=== PATIENT | female | born 1955 | race Caucasian/White ===

== ENCOUNTER 2020-03-24 14:07 | Outpatient (CLI) | payer OTHER, SELFPAY ==
--- NOTE | 2020-03-24 14:13 | MM_ITS ---
WS: [id number] BILATERAL SCREENING DIGITAL MAMMOGRAM WITH CAD HISTORY: SCREENING COMPARISON: 12/13/2016 and 05/15/2014 Bilateral CC and MLO views submitted. Computer aided detection analyzed. Breast composition: There are scattered areas of fibroglandular density. No suspicious masses, microc alcifications or architectural distortion. MM/[place] [id number] IMPRESSION: BI-RADS: 1-Negative FOLLOW UP: 1 Year Follow-up
== END 2020-03-24 14:08 | disposition home or self-care (01) ==
LOC: RADSHAW 14:11
PROVIDERS: PCP Nurse Practitioner Family; Visit Provider Nurse Practitioner Family
DX: Z12.31 Encounter for screening mammogram for malignant neoplasm of breast (principal)
CPT/HCPCS: 77067

== ENCOUNTER → 2023-01-24 10:30 | Outpatient (BNVA) | payer MEDICARE, OTHER, SELFPAY | PROVIDERS: PCP Nurse Practitioner Family; Referring Provider Family Medicine; Visit Provider Obstetrics & Gynecology | DX: Z12.4 Encounter for screening for malignant neoplasm of cervix (principal) | CPT/HCPCS: 87624 ==

== ENCOUNTER → 2023-02-07 09:11 | Outpatient (BNVA) | payer MEDICARE, OTHER, SELFPAY | PROVIDERS: PCP Nurse Practitioner Family; Visit Provider Obstetrics & Gynecology | DX: N95.0 Postmenopausal bleeding (principal) | CPT/HCPCS: 76830 ==

== ENCOUNTER 2023-03-10 11:19 | Day surgery (SDC) | payer MEDICARE, OTHER, SELFPAY ==
[2023-03-09 08:54] VITALS: BMI 39.9
[2023-03-10] VITALS (7 sets, daily range): BP systolic 147–165; BP diastolic 70–91; PULSE 65–83; RESP 12–19; TEMP 36.1–36.6; O2SAT 99–100
--- NOTE | 2023-03-10 05:52 | W.PM.OPSFHP ---
Same Day Surgery H&P Indication for Procedure/HPI DATE OF PROCEDURE: March 10, 2023 CHIEF COMPLAINT/INDICATIONFOR SURGICAL PROCEDURE: postmenopausal bleeding PREOP DIAGNOSIS: Postmenopausal bleeding; Abnormal endometrium on ultrasound PLANNED PROCEDURE: Operation Date: 03/10/23 13:10 Proposed Procedures p Hysteroscopy, endometrial sampling, possible endometrial polypectomy with Myosure 46947,N95.0(Not Applicable) - Elliott Olvera MD 67 y.o. G0 LNMP?? 11 years ago Began to have vaginal bleeding several weeks ago ? Lasting days ? + clots from vagina Now scheduled for hysteroscopy, endometrial sampling, possible endometrial polypectomy Medications/Allergies* Home Medications Medication Instructions Recorded Confirmed Type No Known Home Medications 01/24/23 03/09/23 History Allergies/Adverse Reactions Allergy/AdvReac Type Severity Reaction Status Date / Time Penicillins Allergy unkown Verified 03/09/23 08:53 sulfamethoxazole Allergy ALGY-Hives Verified 03/09/23 08:54 [From ] trimethoprim [From ] Allergy ALGY-Hives Verified 03/09/23 08:54 Pertinent History/Comorbid Conditions* Family History (Updated 01/24/23 @ 09:15 by Natalia Sahu) Ovarian cancer Mother Diabetes Brother Denies family history of Colon cancer Heart disease Hyperlipidemia Breast cancer Hypertension Thyroid disease Stroke Pertinent Exam Findings alert, oriented x 3, clear to auscultation bilaterally and regular rate & rhythm Pertinent Data Pelvic sono? 02-07-23? endometrium thickened and cystic ? Normal ovaries Recommendations Surgery/Procedure today Coding Level of Care Code Acute Code for Chg Fwd Diagnoses Time Spent (min) 20
[2023-03-10] MEDS: sodium chloride 0.9% 1,000 ML 30 ML IV (12:07)
--- NOTE | 2023-03-10 12:09 | W.PM.OPSUD ---
Surgery/Procedure H&P Update DATE OF PROCEDURE: March 10, 2023 DATE H&P PERFORMED: 03/10/23 H&P UPDATE INFORMATION: I have reviewed H&P completed within last 30 days, I have examined patient prior to procedure and No changes to prior documentation PREOP DIAGNOSIS: Postmenopausal bleeding; Abnormal endometrium on ultrasound PLANNED PROCEDURE: Operation Date: 03/10/23 13:10 Proposed Procedures p Hysteroscopy, endometrial sampling, possible endometrial polypectomy with Myosure 57889,N95.0(Not Applicable) - Elliott Olvera MD
--- NOTE | 2023-03-10 13:50 | ANES.PREANE2 ---
Pre-Anesthetic Assessment Height/Weight: Height 1.65 m Weight 108.862 kg Temp Pulse Resp BP Pulse Ox O2 Del Method 97.8 F 73 18 148/85 99 Room Air 03/10/23 11:47 03/10/23 11:47 03/10/23 11:47 03/10/23 11:47 03/10/23 11:47 03/10/23 11:59 Preop Diagnosis: Postmenopausal bleeding; Abnormal endometrium on ultrasound Operation Date: 03/10/23 13:10 Proposed Procedures p Hysteroscopy, endometrial sampling, possible endometrial polypectomy with Myosure 10999,N95.0(Not Applicable) - Elliott Olvera MD Familial anesthetic complications: none Was Beta Janak taken within 24 hours: N/A Was Clonidine taken within 24 hours: N/A Last intake: Intake Last Liquid Date 03/10/23 Last Liquid Time 07:00 Last Solid Date 03/09/23 Last Solid Time 20:30 Social No alcohol and No tobacco Exam alert, oriented x 3, clear to auscultation bilaterally and regular rate & rhythm Airway Submandibular: within normal limits Cervical ROM: within normal limits Mallampati: Class II Dentition: chipped (multiple caries) History/ROS No significant history except as noted Anesthetic Plan ASA status: 1 Anesthesia: General Medications/Allergies Home Medications Medication Instructions Recorded Confirmed Last Taken Type No Known Home Medications 01/24/23 03/09/23 Unknown History Allergies Allergy/AdvReac Type Severity Reaction Status Date / Time Penicillins Allergy Intermediate ALGY-Hives Verified 03/10/23 11:40 sulfamethoxazole Allergy Intermediate ALGY-Hives Verified 03/10/23 11:40 [From ] trimethoprim [From ] Allergy Intermediate ALGY-Hives Verified 03/10/23 11:41 Current Medications Generic Name Dose Route Start Last Admin Trade Name Freq PRN Reason Stop Dose Admin Sodium Chloride 1,000 mls @ 30 mls/hr 03/10/23 11:45 03/10/23 12:07 Sodium Chloride 0.9% IV 03/11/23 11:44 30 mls/hr .Q24H RODDY Administration PFSH Anesthesia Family History Mother Ovarian cancer Brother Diabetes Denies family history of Colon cancer Heart disease Hyperlipidemia Breast cancer Hypertension Thyroid disease Stroke Data Anesthesia Cardiac Studies: No Data to Display
--- NOTE | 2023-03-10 15:23 | ANE.PACU2 ---
Inpatient post-anesthesia follow up: Airway intact: Yes Vital signs: Temperature 97.0 F Pulse Rate 80 Respiratory Rate 12 Blood Pressure 155/74 Pulse Oximetry 99 Oxygen Delivery Me thod Room Air Oxygen Flow Rate 6 Fraction of Inspir ed Oxygen Hydration adequate: Yes Nausea and vomiting: No Pain level: 2 Mental status: Baseline
[2023-03-10] MEDS: ondansetron 2 mg/ML SDV 2 mL 4 MG IVP (16:01)
--- NOTE | 2023-03-10 16:05 | PM.OP ---
Operative Report Date of procedure: March 10, 2023 Pre-op diagnosis: postmenopausal bleeding Post-op diagnosis: same Post-op findings: stenotic cervical os tortuous cervical canal Unable to introduce hysteroscope Procedure done: Curettage of uterus Implants: none Specimens removed/disposition: endometrial tissue Surgeon: Elliott Olvera MD Anesthesia: General Estimated blood loss (mL): 0 Complications: none Condition: stable Disposition: PACU Brief History: 67 y.o. G0 LNMP?? 11 years ago Began to have vaginal bleeding several weeks ago ? Lasting days ? + clots from vagina scheduled for hysteroscopy, endometrial sampling, possible endometrial polypectomy Procedure: Informed consent signed. Patient was taken to the operating room.? Anesthesia was induced.? Patient was placed in dorsolithotomy position, prepped and draped for hysteroscopy.? A bivalve speculum was placed in the vagina.? The anterior lip of the cervix was grasped with a sharp-toothed tenaculum.? The cervical os was noted to be extremely stenotic.? Pediatric dilators were used to dilate the os enough to introduce a small curette.? The cervical canal was tortuous, was unable to allow introduction of a hysteroscope. ??Endometrial curettage was done with a sharp curette.? ?Small amount of endometrial tissue was obtained and sent to pathology.?? The sharp-toothed tenaculum was removed.? There was no bleeding from the endometrial cavity or cervix.? The patient was then placed supine and awakened and taken to the PACU. Postop condition:? stable EBL:? none Sponge and instruments counts were normal x 2 Complications:? none
== END 2023-03-10 16:15 | disposition home or self-care (01) ==
PROVIDERS: PCP Family Medicine; Visit Provider Obstetrics & Gynecology
PROC: 0UDB8ZZ Extraction of Endometrium, Via Natural or Artificial Opening Endoscopic (ICD-10-PCS; CPT 58558; principal; 2023-03-10 13:00)
DX: N95.0 Postmenopausal bleeding (principal); Z85.43 Personal history of malignant neoplasm of ovary
CPT/HCPCS: 58120; 88305; J1100; J2405; J2704; J3010; J7030

== ENCOUNTER → 2023-05-31 13:51 | Outpatient (BNVA) | payer MEDICARE, OTHER, SELFPAY | PROVIDERS: PCP Family Medicine; Visit Provider Podiatrist Foot & Ankle Surgery | DX: S82.831A Other fracture of upper and lower end of right fibula, initial encounter for closed fracture (principal); S99.911A Unspecified injury of right ankle, initial encounter; W10.2XXA Fall (on)(from) incline, initial encounter | CPT/HCPCS: 99203 ==

== ENCOUNTER → 2023-06-07 13:07 | Outpatient (BNVA) | payer MEDICARE, OTHER, SELFPAY | PROVIDERS: PCP Family Medicine; Visit Provider Podiatrist Foot & Ankle Surgery | DX: S82.831D Other fracture of upper and lower end of right fibula, subsequent encounter for closed fracture with routine healing; S99.911D Unspecified injury of right ankle, subsequent encounter; W10.2XXD Fall (on)(from) incline, subsequent encounter | CPT/HCPCS: 73610; 99214 ==

== ENCOUNTER 2023-06-10 10:26 | Day surgery (SDC) | payer MEDICARE, OTHER, SELFPAY ==
[2023-06-10] VITALS (10 sets, daily range): BP systolic 122–140; BP diastolic 64–90; PULSE 63–79; RESP 7–18; TEMP 36.1–36.3; O2SAT 96–100; BMI 38.2
--- NOTE | 2023-06-10 | XR_ITS ---
WS: [id number] Right ankle, C-arm fluoroscopy views, 06/10/2023 Clinical Data: right ankle orif , or pic Comparison: Right ankle, 06/07/2023 Findings: Dr. Espinosa repaired the fracture of the distal right fibula with a plate and screws. Impression: Internal fixation of distal right fibular fracture.
--- NOTE | 2023-06-10 10:25 | W.PM.OPSUD ---
Surgery/Procedure H&P Update DATE OF PROCEDURE: June 10, 2023 DATE H&P PERFORMED: 03/10/23 H&P UPDATE INFORMATION: I have reviewed H&P completed within last 30 days, I have examined patient prior to procedure, No changes to prior documentation and H&P is in [facility] EMR on date indicated PLANNED PROCEDURE: Operation Date: 06/10/23 11:55 Proposed Procedures p Open reduction internal fixation right lateral malleolus 34457,S82.831A(Right) - Bryce Espinosa DPM
[2023-06-10] MEDS: sodium chloride 0.9% 1,000 ML 30 ML IV (10:55)
--- NOTE | 2023-06-10 11:04 | ANES.PREANE2 ---
Pre-Anesthetic Assessment Height/Weight: Height 1.65 m Weight 104.326 kg Temp Pulse Resp BP Pulse Ox O2 Del Method 97.3 F L 73 18 129/77 98 Room Air 06/10/23 10:42 06/10/23 10:42 06/10/23 10:42 06/10/23 10:42 06/10/23 10:42 06/10/23 10:42 Preop Diagnosis: Right distal fibular fracture Operation Date: 06/10/23 11:55 Proposed Procedures p Open reduction internal fixation right lateral malleolus 39808,S82.831A(Right) - Bryce Espinosa DPM Familial anesthetic complications: None Was Beta Janak taken within 24 hours: N/A Was Clonidine taken within 24 hours: N/A Last intake: Intake Last Liquid Date 06/10/23 Last Liquid Time 06:30 Last Solid Date 06/09/23 Last Solid Time 22:30 Social No alcohol and No tobacco Exam alert, oriented x 3, clear to auscultation bilaterally and regular rate & rhythm Airway Mallampati: Class II Dentition: full Metabolic Morbid Obesity Anesthetic Plan ASA status: 2 Anesthesia: General and Regional (specify below) Risk of > 500 ml blood loss (7ml/kg in children): No Medications/Allergies Home Medications Medication Instructions Recorded Confirmed Last Taken Type No Known Home Medications 01/24/23 06/10/23 Unknown History hydrocodone 10 mg-acetaminophen 1 tab PO Q6H PRN pain 7 days #28 06/10/23 Unknown Rx 325 mg tablet tabs Allergies Allergy/AdvReac Type Severity Reaction Status Date / Time Penicillins Allergy Intermediate ALGY-Hives Verified 06/10/23 10:37 sulfamethoxazole Allergy Intermediate ALGY-Hives Verified 06/10/23 10:37 [From ] trimethoprim [From ] Allergy Intermediate ALGY-Hives Verified 06/10/23 10:37 Current Medications Generic Name Dose Route Start Last Admin Trade Name Freq PRN Reason Stop Dose Admin Sodium Chloride 1,000 mls @ 30 mls/hr 06/10/23 10:30 06/10/23 10:55 Sodium Chloride 0.9% IV 06/11/23 10:29 30 mls/hr .Q24H RODDY Administration PFSH Anesthesia Family History Mother Ovarian cancer Brother Diabetes Denies family history of Colon cancer Heart disease Hyperlipidemia Breast cancer Hypertension Thyroid disease Stroke Data Anesthesia Cardiac Studies: No Data to Display
--- NOTE | 2023-06-10 11:11 | P.HPUD_ITS ---
Surgery/Procedure H&P Update DATE OF PROCEDURE: June 10, 2023 DATE H&P PERFORMED: 06/07/23 H&P UPDATE INFORMATION: I have reviewed H&P completed within last 30 days, I have examined patient prior to procedure, No changes to prior documentation and H&P is in [facility] EMR on date indicated PREOP DIAGNOSIS: Right distal fibular fracture PLANNED PROCEDURE: Operation Date: 06/10/23 11:55 Proposed Procedures p Open reduction internal fixation right lateral malleolus 47150,S82.831A(Right) - Bryce Espinosa DPM
--- NOTE | 2023-06-10 11:58 | ANES.PROC ---
Anesthesia Procedures Procedure/Date: 06/10/23 Nerve Block ^: Nerve Block 1: Main Anesthesia: general anesthesia Time Out Performed: No Consent: requested by attending/covering physician, from patient, from other, risks and benefits reviewed and patient agrees to proceed Nerve block location: popliteal (R) Anesthesia monitors applied: pulse oximetry, EKG, BP cuff and oxygen Nerve block position: supine Anesthetic Used: ropivicaine 0.5% (30 ml) and with decadron (4 mg) Ultrasound used to: recognize landmarks Nerve Stimulator Used?: No Interscalene/Femoral BLK: 4 stimuplex 21 g needle used for position and inplane approach, visualize local anesthetic spread and no vascular puncture identified Injection: neg aspiration of heme Patient Tolerated Procedure: well Complications: none
[2023-06-10] MEDS: clindamycin 600 MG/50 ML PREMIX 100 MG IV (12:00)
[2023-06-10] MEDS: BUPivacaine liposome 13.3 mg/mL SDV 10 mL 133 MG INFILTRATI ×2 (12:29→12:30)
--- NOTE | 2023-06-10 12:53 | P.OP_ITS ---
Operative Report Date of procedure: June 10, 2023 Pre-op diagnosis: Right distal fibular fracture Post-op diagnosis: Right distal fibular fracture Procedure done: Open reduction internal fixation right lateral malleolus. CPT code 18015 Implants: Sedalia one third tubular plate and 3.5 millimeter screws Surgeon: Bryce Espinosa DPM [employer] Paraprofessional: See intraoperative documentation Estimated blood loss: 5 33 IV fluids: 0 Urine output: 0 Complications: None Brief History: Repeat x-rays right ankle 3 view shows Yves Franco B fracture with shortening and greater than 2 mm of displacement laterally of the distal fragment. No significant angulation of the distal fragment. Ankle mortise is congruent at the right ankle. No medial malleolus involvement. Given progression of displacement both laterally and proximally discussed surgical versus continuation of conservative treatment. Patient would like to proceed with surgical intervention to restore anatomic alignment and help prevent ankle from further deformity. I reviewed at length with the patient, the risks, potential complications, benefits, alternatives, expectations, and typical outcomes associated with the surgery. The risks and potential complications were explained in detail, including but not limited to infection, wound dehiscence or soft tissue complications, bleeding and hematoma, chronic edema, neuritis or nerve damage producing numbness or chronic pain, CRPS, failure to relieve pain or worsening pain, thick / painful / unsightly scar, limited motion / stiffness, malposition, delayed union, malunion, or nonunion, fracture, reaction to implants, anesthetic complications, venous thromboembolism, and deformity recurrence. I discussed the notion of no regrets with the patient as it pe rtains to complications and outcomes. The patient seemed to understand the nature of the proposed care and required convalescence. They asked appropriate questions, answered to their satisfaction. They are aware no guarantees can be made as to a satisfactory outcome and they understand there may be other possible unforeseen complications or outcomes not listed here that will be treated accordingly if they arise. There were no written or implied guarantees given to the patient. They gave informed consent to proceed. Procedure: Under mild sedation the patient was brought to the operating room and remained on the gurney in supine position. A timeout was performed. Anesthesia was then administered by the anesthesia service. Popliteal block performed to the right lower extremity per anesthesia preoperatively. Well-padded pneumatic tourniquet applied to the right high calf. The right lower extremity was scrubbed, prepped and draped utilizing normal aseptic technique. Right lower extremity was exanguinated with an Esmarch bandage and the tourniquet inflated to 250 mmHg. Attention was directed to the right lateral malleolus where a linear longitudinal incision was made directly over the distal fibula through skin with #15 blade with dissection carried down through subcutaneous tissue to the layer of periosteum utilizing sharp and blunt technique. Care was taken to retract and preserve neurovascular and tendinous structures. All bleeders were ligated and cauterized necessary. Clyde Franco B fracture was distracted and curettage of hematoma with a curette and saline flush. Fracture was reduced and fixated utilizing standard AO technique. Fracture was fixated with a one third tubular plate with 3 screws distal and 5 screws proximal with excellent bony apposition and compression noted. Fracture was anatomically reduced and the AP, oblique and lateral views utilizing intraoperative fluoroscopy with congruent ankle mor tise, it was pulled at length and the rotated. The incision was irrigated with saline solution. Smooth range of motion at the right ankle was appreciated intraoperatively. Hardware did not violate the ankle mortise confirmed with intraoperative fluoroscopy in the AP, oblique and lateral view. Incision was then closed with periosteum reapproximated with 2-0 Vicryl, skin and subcutaneous tissue with 3-0 Vicryl and skin with skin fei. Incision was dressed with Adaptic, sterile 4 x 4's, Kerlix and Mike wrap. Cam boot was applied to the right lower extremity. The right lower extremity tourniquet was then deflated and a prompt hyperemic response was noted to the distal digits of the right foot. Patient tolerated the procedure well and was transferred to the PACU with vital signs stable and vascular status intact. Following a period of postoperative monitoring she will be discharged home. He is to be nonweightbearing to right lower extremity and elevate right foot while resting. Was given at home care instructions, scheduled follow-up and my cell phone number to contact with any postoperative questions or concerns.
--- NOTE | 2023-06-10 12:54 | W.PM.BPON ---
Date of Procedure: 06/10/23 Surgeon: Brcye Espinosa DPM [employer] Supervisor(s): Rodrigo Raymundo Procedure(s) performed: Open reduction internal fixation right distal fibula Findings of the procedure(s): None Estimated blood loss: 5 mL Specimen(s) removed: none Post-operative diagnosis: Right distal fibular fracture No complications with anesthesia or surgery.
--- NOTE | 2023-06-10 14:52 | ANE.PACU2 ---
Inpatient post-anesthesia follow up: Airway intact: Yes Vital signs: Temperature 97.3 F Pulse Rate 63 Respiratory Rate 18 Blood Pressure 127/70 Pulse Oximetry 98 Oxygen Delivery Me thod Room Air Oxygen Flow Rate 6 Fraction of Inspir ed Oxygen Hydration adequate: Yes Nausea and vomiting: No Pain level: 1 Mental status: Baseline
== END 2023-06-10 14:13 | disposition home or self-care (01) ==
PROVIDERS: PCP Family Medicine; Visit Provider Podiatrist Foot & Ankle Surgery
PROC: (CPT 27792; principal; 2023-06-10 11:45)
DX: S82.61XA Displaced fracture of lateral malleolus of right fibula, initial encounter for closed fracture (principal); W19.XXXA Unspecified fall, initial encounter
CPT/HCPCS: 27792; 73600; 76000; C1713; C9290; J1100; J2405; J2704; J2795; J3010; J3490; J7030

== ENCOUNTER → 2023-06-23 13:39 | Outpatient (BNVA) | payer MEDICARE, OTHER, SELFPAY | PROVIDERS: PCP Family Medicine; Visit Provider Podiatrist Foot & Ankle Surgery | DX: Z98.890 Other specified postprocedural states; S82.831D Other fracture of upper and lower end of right fibula, subsequent encounter for closed fracture with routine healing; X58.XXXD Exposure to other specified factors, subsequent encounter | CPT/HCPCS: 73610; 99024 ==

== ENCOUNTER → 2023-07-07 13:26 | Outpatient (BNVA) | payer MEDICARE, OTHER, SELFPAY | PROVIDERS: PCP Family Medicine; Visit Provider Podiatrist Foot & Ankle Surgery | DX: S82.891D Other fracture of right lower leg, subsequent encounter for closed fracture with routine healing; X58.XXXD Exposure to other specified factors, subsequent encounter; Z98.890 Other specified postprocedural states | CPT/HCPCS: 73610; 99024 ==

== ENCOUNTER → 2023-07-21 13:49 | Outpatient (BNVA) | payer MEDICARE, OTHER, SELFPAY | PROVIDERS: PCP Family Medicine; Visit Provider Podiatrist Foot & Ankle Surgery | DX: Z98.890 Other specified postprocedural states (principal); Z47.89 Encounter for other orthopedic aftercare; Z87.81 Personal history of (healed) traumatic fracture | CPT/HCPCS: 73610; 99024; L1902 ==

== ENCOUNTER 2023-07-21 15:15 | Outpatient (CLI) | payer MEDICARE, OTHER, SELFPAY | END 2023-07-21 15:16 | disposition home or self-care (01) | LOC: SPT 15:16 | PROVIDERS: PCP Family Medicine; Visit Provider Podiatrist Foot & Ankle Surgery | DX: Z47.89 Encounter for other orthopedic aftercare (principal); Z87.81 Personal history of (healed) traumatic fracture | CPT/HCPCS: 99024; L1902 ==

== ENCOUNTER → 2023-08-18 12:56 | Outpatient (BNVA) | payer MEDICARE, OTHER, SELFPAY | PROVIDERS: PCP Family Medicine; Visit Provider Podiatrist Foot & Ankle Surgery | DX: Z98.890 Other specified postprocedural states (principal); Z87.81 Personal history of (healed) traumatic fracture | CPT/HCPCS: 73610; 99024 ==

== ENCOUNTER → 2024-10-08 12:05 | Outpatient (BNVA) | payer MEDICARE, OTHER, SELFPAY | PROVIDERS: PCP Family Medicine; Visit Provider Obstetrics & Gynecology | DX: N95.0 Postmenopausal bleeding (principal); R93.89 Abnormal findings on diagnostic imaging of other specified body structures | CPT/HCPCS: 76830 ==

== ENCOUNTER 2025-01-22 11:47 | Day surgery (SDC) | payer MEDICARE, OTHER, SELFPAY ==
--- NOTE | 2025-01-21 19:46 | W.PM.OPSFHP ---
Same Day Surgery H&P Indication for Procedure/HPI DATE OF PROCEDURE: January 21, 2025 CHIEF COMPLAINT/INDICATIONFOR SURGICAL PROCEDURE: abnormal uterine bleeding PREOP DIAGNOSIS: abnormal uterine bleeding PLANNED PROCEDURE: Operation Date: 01/22/25 13:35 Proposed Procedures p Hysteroscopy w/ Endometrial Sampling [id number](Not Applicable) - Elliott Olvera MD s Possible Endometrial Polypectomy(Not Applicable) - Elliott Olvera MD Medications/Allergies* Home Medications ?Medication ?Instructions ?Recorded ?Confirmed ?Type metformin 750 mg tablet 750 mg PO DAILY 12/31/24 01/21/25 History Allergies/Adverse Reactions Allergy/AdvReac Type Severity Reaction Status Date / Time Penicillins Allergy Intermediate ALGY-Hives Verified 01/21/25 12:45 sulfamethoxazole (From Allergy Intermediate ALGY-Hives Verified 01/21/25 12:45 Septra) trimethoprim (From Septra) Allergy Intermediate ALGY-Hives Verified 01/21/25 12:45 Pertinent History/Comorbid Conditions* Family History (Updated 01/24/23 @ 09:15 by Natalia Sahu) Ovarian cancer Mother Diabetes Brother Denies family history of Colon cancer Heart disease Hyperlipidemia Breast cancer Hypertension Thyroid disease Stroke Social History Smoking and tobacco/nicotine status: never used tobacco/nicotine Pertinent Exam Findings alert, oriented x 3, clear to auscultation bilaterally and regular rate & rhythm Recommendations Surgery/Procedure today Coding Level of Care Code Acute Code for Chg Fwd
[2025-01-22] VITALS (10 sets, daily range): BP systolic 129–151; BP diastolic 71–88; PULSE 67–108; RESP 16–17; TEMP 36.1–36.3; O2SAT 95–100; BMI 40.1
--- NOTE | 2025-01-22 12:55 | PM.OP ---
Operative Report Date of procedure: January 22, 2025 Pre-op diagnosis: postmenopausal bleeding Post-op diagnosis: same Post-op findings: large amount of endometrial tissue, arranged into polyps and other disorganized formations Procedure done: hysteroscopy endometrial sampling and polypectomy with Myosure endometrial curettage Implants: None Specimens removed/disposition: endometrial tissue Surgeon: Elliott Olvera MD Anesthesia: MAC Estimated blood loss (mL): 0 Complications: none Findings: large amount of endometrial tissue, arranged into polyps and other disorganized formations Condition: stable Disposition: PACU Brief History: 69 y.o. with persistent postmenopausal bleeding Procedure: patient was taken to the operating room. Anesthesia was induced. Patient was placed in dorsolithotomy position,prepped and draped for hysteroscopy. A bivalve speculum was placed in the vagina. The cervix and vagina were normal. The anterior lip of the cervix was grasped with a sharp-toothed tenaculum. The cervix was serially dilated with Hegar dilators. The uterus was sounded to 9 cm. A hysteroscope was placed into the endometrial cavity. There was profuse amount of endometrial tissue, arranged in polypoid masses and also in disorganized fashion. A Myosure device was then inserted and the endometrial tissue were removed and sent to pathology. The endometrial cavity was seen to be intact. The hysteroscope and Myosure were then removed. Curettage was also done with a sharp curette. The sharp-toothed tenaculum was removed. There was no bleeding from the endometrial cavity or cervix. The patient was then placed supine and awakened and taken to the PACU. Postop condition: stable EBL: none Sponge and instruments counts were normal x 2 Complications: none
--- NOTE | 2025-01-22 13:14 | W.PM.OPSUD ---
Surgery/Procedure H&P Update DATE OF PROCEDURE: January 22, 2025 DATE H&P PERFORMED: 01/21/25 H&P UPDATE INFORMATION: I have reviewed H&P completed within last 30 days, I have examined patient prior to procedure and No changes to prior documentation PREOP DIAGNOSIS: abnormal uterine bleeding PLANNED PROCEDURE: Operation Date: 01/22/25 13:35 Proposed Procedures p Hysteroscopy w/ Endometrial Sampling 15999 13667(Not Applicable) - Elliott Olvera MD s Possible Endometrial Polypectomy(Not Applicable) - Elliott Olvera MD
--- NOTE | 2025-01-22 13:47 | ANES.PREANE2 ---
Pre-Anesthetic Assessment Height/Weight: Height 5 ft 5 in Weight 241 lb Temp Pulse Resp BP Pulse Ox O2 Del Method 97.0 F L 108 H 17 141/88 95 Room Air 01/22/25 12:20 01/22/25 12:20 01/22/25 12:20 01/22/25 12:20 01/22/25 12:20 01/22/25 12:20 Preop Diagnosis: abnormal uterine bleeding Operation Date: 01/22/25 13:35 Proposed Procedures p Hysteroscopy w/ Endometrial Sampling 06692 05757(Not Applicable) - Elliott Olvera MD s Possible Endometrial Polypectomy(Not Applicable) - Elliott Olvera MD Was Beta Janak taken within 24 hours: N/A Was Clonidine taken within 24 hours: N/A Last intake: Intake Last Liquid Date 01/22/25 Last Liquid Time 08:00 Last Solid Date 01/21/25 Last Solid Time 22:00 Social No alcohol and No tobacco Exam alert, oriented x 3, clear to auscultation bilaterally and regular rate & rhythm Airway Submandibular: within normal limits Cervical ROM: within normal limits Mallampati: Class III Comments: Comments: Missing bottom teeth, denies any loose Anesthetic Plan ASA status: 3 Anesthesia: General Other: No prior issues with anesthesia NPO since yesterday evening Type 2 diabetes on metformin, preop BS 112 Denies any cardiac or pulmonary issues METs greater than 4 Plan for general anesthesia Medications/Allergies Home Medications ?Medication ?Instructions ?Recorded ?Confirmed ?Last Taken ?Type ASO to right #1 ea 07/21/23 01/21/25 Unknown Rx custom orthotics #1 ea 10/03/24 01/21/25 Unknown Rx metformin 750 mg tablet 750 mg PO DAILY 12/31/24 01/21/25 01/14/25 History solifenacin 10 mg tablet (Vesicare) 10 mg PO DAILY #30 tabs 12/31/24 01/21/25 Unknown Rx Allergies Allergy/AdvReac Type Severity Reaction Status Date / Time Penicillins Allergy Intermediate ALGY-Hives Verified 01/22/25 12:01 sulfamethoxazole (From Allergy Intermediate ALGY-Hives Verified 01/22/25 12:01 Septra) trimethoprim (From ) Allergy Intermediate ALGY-Hives Verified 01/22/25 12:01 Current Medications Generic Name Dose Route Start Last Admin Trade Name Freq PRN Reason Stop Dose Admin Sodium Chloride 1,000 mls @ 30 mls/hr 01/22/25 12:00 01/22/25 12:26 Sodium Chloride 0.9% IV 01/23/25 11:59 30 mls/hr .Q24H RODDY Administration PFSH Anesthesia Family History Mother Ovarian cancer Brother Diabetes Denies family history of Colon cancer Heart disease Hyperlipidemia Breast cancer Hypertension Thyroid disease Stroke Social History Smoking and tobacco/nicotine status: never used tobacco/nicotine
--- NOTE | 2025-01-22 15:48 | ANE.PACU2 ---
Inpatient post-anesthesia follow up: Airway intact: Yes Vital signs: Temperature 97.3 F Pulse Rate 67 Respiratory Rate 16 Blood Pressure 139/71 Pulse Oximetry 97 Oxygen Delivery Me thod Room Air Oxygen Flow Rate Fraction of Inspir ed Oxygen Hydration adequate: Yes Nausea and vomiting: No Pain level: 1 Mental status: Baseline
== END 2025-01-22 15:41 | disposition home or self-care (01) ==
PROVIDERS: PCP Family Medicine; Visit Provider Obstetrics & Gynecology
PROC: 0UJD8ZZ Inspection of Uterus and Cervix, Via Natural or Artificial Opening Endoscopic (ICD-10-PCS; CPT 58555; principal; 2025-01-22 13:25)
DX: C54.1 Malignant neoplasm of endometrium (principal); E11.9 Type 2 diabetes mellitus without complications; Z79.84 Long term (current) use of oral hypoglycemic drugs
CPT/HCPCS: 58558; 36416; 82962; 88305; 88341; 88342; J1100; J2405; J2704; J3010; J7030